=== PATIENT | male | born 2000 | race Two or more races ===

== ENCOUNTER 2023-02-25 18:15 | Emergency (ER) | payer OTHER ==
[~2023-02-25] VITALS: Ht 162.6 cm; Wt 59.0 kg
[2023-02-25 18:46] VITALS: BP 109/60; TEMP 98.8
[2023-02-25] MEDS ORDERED: SULF1TAB48 PO (20:22)
[2023-02-25] MEDS ORDERED: KETO10TA2 PO (20:22)
[2023-02-25 20:38] VITALS: O2SAT 98
== END 2023-02-25 20:38 | disposition home or self-care (01) ==
LOC: ER 18:21
DX: L05.91 Pilonidal cyst without abscess (principal); Z79.899 Other long term (current) drug therapy